=== PATIENT | male | born 2000 | race American Indian/Alaskan Native ===

== ENCOUNTER 2020-07-29 00:27 | Emergency (ER) | payer SELFPAY ==
[~2020-07-29] VITALS: Ht 180.3 cm; Wt 81.8 kg
[2020-07-29 00:39] VITALS: TEMP 98.7
[2020-07-29 01:02] LABS: BASO # 0.1 (0.0-0.2); BASO % 0.5 % (0.0-2.0); EOS # 0.4 (0.0-0.7); EOS % 3.5 % (0-4.0); GRAN # 7.5 (1.4-6.5); GRAN % 66.8 % (42.2-75.2); HEMATOCRIT 51.1 % (42.0-52.0); HEMOGLOBIN 17.1 g/dl (13.5-18.0); LYMPH # 2.6 (1.2-3.4); LYMPH % 22.9 % (20.0-51.0); MEAN CELL VOLUME 86 fl (80.0-100.0); MEAN CORPUSCULAR HEMOGLOBIN 29 pg (27.0-31.0); MEAN CORPUSCULAR HGB CONC 34 g/dl (33.0-37.0); MEAN PLATELET VOLUME 10.4 fl (7.4-10.4); MONO # 0.7 (0.1-0.6); MONO % 5.9 % (1.7-9.3); PLATELET COUNT 289 K/mm3 (130-400); RED BLOOD COUNT 5.96 M/mm3 (4.20-5.60); REDCELL DISTRIBUTION WIDTH-CV 13.5 % (11.5-14.5)
[2020-07-29 01:13] LABS: ALBUMIN 4.8 gm/dL (3.5-5.0); BILIRUBIN,TOTAL 1.1 mg/dL (0.0-1.0); CALCIUM 8.8 mg/dL (8.4-10.2); CREATININE, serum 0.86 (0.66-1.25); POTASSIUM 3.8 mmol/L (3.4-5.0); TOTAL PROTEIN 9.4 gm/dL (6.4-8.2)
[2020-07-29 06:09] VITALS: BP 140/80; PULSE 105
== END 2020-07-29 06:16 | disposition home or self-care (01) ==
LOC: COL.ER 00:27
PROVIDERS: Emergency Medicine
DX: F10.129 Alcohol abuse with intoxication, unspecified (principal); F14.129 Cocaine abuse with intoxication, unspecified; J45.909 Unspecified asthma, uncomplicated; Y90.9 Presence of alcohol in blood, level not specified
CPT/HCPCS: J1630; J2405; J7030

== ENCOUNTER 2020-08-02 03:13 | Emergency (ER) | payer SELFPAY ==
[~2020-08-02] VITALS: Ht 180.3 cm; Wt 75.0 kg
[2020-08-02 03:15] VITALS: TEMP 96.8
[2020-08-02 09:05] LABS: HEMATOCRIT 49.8 % (42.0-52.0); HEMOGLOBIN 16.9 g/dl (13.5-18.0); MEAN CELL VOLUME 86 fl (80.0-100.0); MEAN CORPUSCULAR HEMOGLOBIN 29 pg (27.0-31.0); MEAN CORPUSCULAR HGB CONC 34 g/dl (33.0-37.0); MEAN PLATELET VOLUME 10.1 fl (7.4-10.4); PLATELET COUNT 276 K/mm3 (130-400); RED BLOOD COUNT 5.79 M/mm3 (4.20-5.60); REDCELL DISTRIBUTION WIDTH-CV 14.1 % (11.5-14.5)
[2020-08-02 09:15] VITALS: BP 136/53; PULSE 98
[2020-08-02 09:16] LABS: CALCIUM 9.1 mg/dL (8.4-10.2); CREATININE, serum 0.71 (0.66-1.25); POTASSIUM 3.9 mmol/L (3.4-5.0)
== END 2020-08-02 09:15 | disposition short-term general hospital (02) ==
LOC: COL.ER 03:13
PROVIDERS: Emergency Medicine
DX: F10.129 Alcohol abuse with intoxication, unspecified (principal); F14.10 Cocaine abuse, uncomplicated; J45.909 Unspecified asthma, uncomplicated
CPT/HCPCS: J1953; J2405; J3010; J7050

== ENCOUNTER 2020-09-24 03:48 | Emergency (ER) | payer SELFPAY ==
[~2020-09-24] VITALS: Ht 180.3 cm; Wt 79.5 kg
[2020-09-24 03:50] VITALS: BP 144/125
[2020-09-24 04:01] LABS: COLLECTION METHOD CLEAN CATCH
[2020-09-24 04:06] LABS: PH 6 (5-8); SQUAMOUS EPITHELIAL None Seen /hpf; URINE APPEARANCE Clear; URINE BACTERIA None Seen /hpf; URINE BILIRUBIN Negative (NEGATIVE); URINE BLOOD Negative (NEGATIVE); URINE COLOR Colorless; URINE GLUCOSE Negative (NEGATIVE); URINE KETONE Negative (NEGATIVE); URINE LEUKOCYTE ESTERASE Negative (NEGATIVE); URINE NITRATE Negative (NEGATIVE); URINE PROTEIN(semi-quant) Negative (NEGATIVE); URINE RBC None Seen /hpf; URINE UROBILINOGEN Negative (NEGATIVE)
[2020-09-24 04:07] LABS: BASO # 0.1 (0.0-0.2); BASO % 0.6 % (0.0-2.0); EOS # 0.1 (0.0-0.7); EOS % 1.1 % (0-4.0); GRAN # 5.4 (1.4-6.5); GRAN % 66.3 % (42.2-75.2); HEMOGLOBIN 15.9 g/dl (13.5-18.0); LYMPH # 1.9 (1.2-3.4); LYMPH % 23.4 % (20.0-51.0); MEAN CELL VOLUME 84 fl (80.0-100.0); MEAN CORPUSCULAR HEMOGLOBIN 29 pg (27.0-31.0); MEAN CORPUSCULAR HGB CONC 35 g/dl (33.0-37.0); MEAN PLATELET VOLUME 10.2 fl (7.4-10.4); MONO # 0.7 (0.1-0.6); MONO % 8.4 % (1.7-9.3); PLATELET COUNT 284 K/mm3 (130-400); RED BLOOD COUNT 5.47 M/mm3 (4.20-5.60); REDCELL DISTRIBUTION WIDTH-CV 13.4 % (11.5-14.5)
[2020-09-24 04:15] LABS: TRICYCLIC ANTIDEPRESS URINE NEGATIVE
[2020-09-24 04:18] LABS: ALANINE AMINOTRANSFERASE 15 U/L (4-49); ALBUMIN 4.9 gm/dL (3.5-5.0); ALKALINE PHOSPHATASE 91 U/L (50-136); ANION GAP 12 mmol/L (7-16); AST,SGOT 27 U/L (15-37); BILIRUBIN,TOTAL 1.3 mg/dL (0.0-1.0); BLOOD UREA NITROGEN 7 mg/dL (9-20); CALCIUM 9.1 mg/dL (8.4-10.2); CARBON DIOXIDE 22 mmol/L (22-30); CHLORIDE 107 mmol/L (98-107); CREATININE, serum 0.87 (0.66-1.25); GLUCOSE 108 mg/dL (74-106); POTASSIUM 3.6 mmol/L (3.4-5.0); SODIUM 141 mmol/L (137-145); TOTAL PROTEIN 8.6 gm/dL (6.4-8.2)
[2020-09-24 04:27] LABS: ALCOHOL(ethanol),MEDICAL 258 mg/dL
[2020-09-24 04:28] LABS: ACETAMINOPHEN < 10 ug/mL (10-30); SALICYLATE < 1.0 mg/dL
[2020-09-24 05:08] VITALS: PULSE 112
== END 2020-09-24 05:08 | disposition home or self-care (01) ==
LOC: COL.ER 03:48
PROVIDERS: Emergency Medicine
DX: F10.129 Alcohol abuse with intoxication, unspecified (principal); J45.909 Unspecified asthma, uncomplicated
CPT/HCPCS: J7030

== ENCOUNTER 2020-11-06 09:38 | Observation (INO) | payer SELFPAY ==
[~2020-11-06] VITALS: Ht 180.3 cm; Wt 72.7 kg
[2020-11-06 10:01] LABS: HEMATOCRIT 51.7 % (42.0-52.0); HEMOGLOBIN 17.7 g/dl (13.5-18.0); MEAN CELL VOLUME 89 fl (80.0-100.0); MEAN CORPUSCULAR HEMOGLOBIN 30 pg (27.0-31.0); MEAN CORPUSCULAR HGB CONC 34 g/dl (33.0-37.0); PLATELET COUNT 308 K/mm3 (130-400); RED BLOOD COUNT 5.84 M/mm3 (4.20-5.60); REDCELL DISTRIBUTION WIDTH-CV 13.6 % (11.5-14.5)
[2020-11-06 10:08] LABS: ALBUMIN 4.8 gm/dL (3.5-5.0); BILIRUBIN,TOTAL 0.5 mg/dL (0.0-1.0); CALCIUM 9.3 mg/dL (8.4-10.2); CREATININE, serum 0.79 (0.66-1.25); POTASSIUM 4.2 mmol/L (3.4-5.0); TOTAL PROTEIN 8.8 gm/dL (6.4-8.2)
[2020-11-06 10:13] LABS: SALICYLATE 33.8 mg/dL
[2020-11-06 10:26] LABS: BAND 10 % (0-10); LYMPHOCYTE 6 % (20.0-51.0); NEUTROPHILS 81 % (42.0-75.2); PLATELET ESTIMATE NORMAL (NORMAL)
[2020-11-06 11:02] LABS: ARTERIAL BLD GAS O2 SATURATION 97.7 % (92-100); ARTERIAL BLD GAS TCO2 CT 22.8; ARTERIAL BLOOD GAS BASE EXCESS -1.3 (-2-2); ARTERIAL BLOOD GAS HCO3 21.8 meq/L (22-26); ARTERIAL BLOOD GAS PCO2 33.1 mmHg (35-45); ARTERIAL BLOOD GAS PO2 95.5 mmHg (80-100); ARTERIAL BLOOD GAS pH 7.44 (7.35-7.45)
[2020-11-06] MEDS ORDERED: SINGULAIR 110 MG/TAB PO (12:07)
[2020-11-06 12:16] LABS: INR 1.1 (0.8-3.0); PROTHROMBIN TIME 12.1 SECONDS (9.7-12.8)
[2020-11-06 12:39] LABS: COLLECTION METHOD CLEAN CATCH
[2020-11-06 12:47] LABS: PH 6 (5-8); SQUAMOUS EPITHELIAL None Seen /hpf; URINE APPEARANCE Clear; URINE BACTERIA None Seen /hpf; URINE BILIRUBIN Negative (NEGATIVE); URINE BLOOD Negative (NEGATIVE); URINE COLOR Yellow; URINE GLUCOSE Negative (NEGATIVE); URINE KETONE 1+ (NEGATIVE); URINE LEUKOCYTE ESTERASE Negative (NEGATIVE); URINE NITRATE Negative (NEGATIVE); URINE PROTEIN(semi-quant) 2+ (NEGATIVE); URINE UROBILINOGEN Negative (NEGATIVE)
[2020-11-06 12:52] VITALS: BP 134/73; PULSE 105; TEMP 98.6
[2020-11-06 12:55] LABS: TRICYCLIC ANTIDEPRESS URINE NEGATIVE
[2020-11-06 14:26] LABS: ALBUMIN 4.7 gm/dL (3.5-5.0); BILIRUBIN,TOTAL 0.6 mg/dL (0.0-1.0); CALCIUM 9.7 mg/dL (8.4-10.2); CREATININE, serum 0.71 (0.66-1.25); POTASSIUM 4.3 mmol/L (3.4-5.0); TOTAL PROTEIN 8.9 gm/dL (6.4-8.2)
[2020-11-06 15:24] LABS: ALBUMIN 4.6 gm/dL (3.5-5.0); BILIRUBIN,TOTAL 0.6 mg/dL (0.0-1.0); CALCIUM 9.6 mg/dL (8.4-10.2); CREATININE, serum 0.7 (0.66-1.25); SALICYLATE 28.7 mg/dL; TOTAL PROTEIN 8.6 gm/dL (6.4-8.2)
[2020-11-06 16:38] VITALS: BP 128/70; PULSE 84; TEMP 98
[2020-11-06 16:43] LABS: INR 1.2 (0.8-3.0); PROTHROMBIN TIME 13.4 SECONDS (9.7-12.8)
[2020-11-06 16:46] LABS: ALBUMIN 4.5 gm/dL (3.5-5.0); BILIRUBIN,TOTAL 0.6 mg/dL (0.0-1.0); CALCIUM 9.6 mg/dL (8.4-10.2); CREATININE, serum 0.69 (0.66-1.25); POTASSIUM 4.1 mmol/L (3.4-5.0); SALICYLATE 26.8 mg/dL; TOTAL PROTEIN 8.3 gm/dL (6.4-8.2)
--- NOTE | 2020-11-06 18:18 | NUR ---
Contacted Moni CUETO to clarify orders on patinet.
--- NOTE | 2020-11-06 18:19 | NUR ---
Patient doing well since up from ER. Alert and oriented x 3. Oriented to room. Friend at bedside. Denies pain or further needs at this time. Will report off to mine shifter.
[2020-11-06 19:15] LABS: ALBUMIN 4.7 gm/dL (3.5-5.0); BILIRUBIN,TOTAL 0.7 mg/dL (0.0-1.0); CALCIUM 9.7 mg/dL (8.4-10.2); CREATININE, serum 0.72 (0.66-1.25); POTASSIUM 3.4 mmol/L (3.4-5.0); SALICYLATE 24.7 mg/dL; TOTAL PROTEIN 8.4 gm/dL (6.4-8.2)
[2020-11-06 19:23] VITALS: BP 139/83; PULSE 118; TEMP 97.9
[2020-11-06 20:40] LABS: ALBUMIN 4.6 gm/dL (3.5-5.0); BILIRUBIN,TOTAL 0.7 mg/dL (0.0-1.0); CALCIUM 9.4 mg/dL (8.4-10.2); CREATININE, serum 0.72 (0.66-1.25); POTASSIUM 3.4 mmol/L (3.4-5.0); TOTAL PROTEIN 8.1 gm/dL (6.4-8.2)
[2020-11-06 20:46] LABS: INR 1.2 (0.8-3.0); PROTHROMBIN TIME 13.4 SECONDS (9.7-12.8)
[2020-11-06 20:46] LABS: ARTERIAL BLD GAS O2 SATURATION 97.1 % (92-100); ARTERIAL BLD GAS TCO2 CT 24.8; ARTERIAL BLOOD GAS BASE EXCESS 0.6 (-2-2); ARTERIAL BLOOD GAS HCO3 23.7 meq/L (22-26); ARTERIAL BLOOD GAS PCO2 34.3 mmHg (35-45); ARTERIAL BLOOD GAS PO2 85.9 mmHg (80-100); ARTERIAL BLOOD GAS pH 7.46 (7.35-7.45)
[2020-11-06 20:48] LABS: SALICYLATE 23.2 mg/dL
--- NOTE | 2020-11-06 22:42 | NUR ---
SPOKE WITH POISON CONTROL, UPDATES GIVEN. RELAYED RECOMMENDED LABS TO TYRESE CUETO FOR AM. CONTINUE ACETADOTE.
[2020-11-06 23:15] LABS: ALBUMIN 4.3 gm/dL (3.5-5.0); BILIRUBIN,TOTAL 0.7 mg/dL (0.0-1.0); CALCIUM 9.2 mg/dL (8.4-10.2); CREATININE, serum 0.7 (0.66-1.25); SALICYLATE 20.6 mg/dL; TOTAL PROTEIN 7.7 gm/dL (6.4-8.2)
[2020-11-07 00:01] VITALS: BP 133/67; PULSE 106; TEMP 97.9
--- NOTE | 2020-11-07 00:46 | NUR ---
REPORTS MILD NAUSEA, ZOFRAN 4MG IVP GIVEN AT THIS TIME.
--- NOTE | 2020-11-07 04:00 | NUR ---
PT TAKES ACETADOTE WITH MINIMAL NAUSEA. SALTINES HELPED EASE STOMACH. DENIES NEEDS AT THIS TIME.
[2020-11-07 04:06] VITALS: BP 132/63; PULSE 88; TEMP 98.4
--- NOTE | 2020-11-07 07:00 | NUR ---
Report received from SERGEY Marino. PT in bedresting, denies any pain or nausea at this time but does not want any breakfast this am. Crackers at bedside. Will cotninue to monitor.
[2020-11-07 07:40] VITALS: BP 122/63; PULSE 73; TEMP 98.3
[2020-11-07 07:57] LABS: INR 1.2 (0.8-3.0); PROTHROMBIN TIME 13.4 SECONDS (9.7-12.8)
[2020-11-07 07:59] LABS: ACETAMINOPHEN < 10 ug/mL (10-30); ALANINE AMINOTRANSFERASE 12 U/L (4-49); ALKALINE PHOSPHATASE 61 U/L (50-136); ANION GAP 10 mmol/L (7-16); AST,SGOT 22 U/L (15-37); BILIRUBIN,TOTAL 0.8 mg/dL (0.0-1.0); BLOOD UREA NITROGEN 5 mg/dL (9-20); CALCIUM 9.1 mg/dL (8.4-10.2); CARBON DIOXIDE 26 mmol/L (22-30); CHLORIDE 105 mmol/L (98-107); CREATININE, serum 0.67 (0.66-1.25); GLUCOSE 95 mg/dL (74-106); POTASSIUM 3.4 mmol/L (3.4-5.0); SODIUM 140 mmol/L (137-145); TOTAL PROTEIN 7.3 gm/dL (6.4-8.2)
--- NOTE | 2020-11-07 08:15 | NUR ---
Pt Assessment charted. Pt requesting potassium pills instead of drinks this am. Denies any thoughts or intentions with the overdose and does not have any suicidal ideations. IVF to R A/C. Denies pain or nausea, will continue to monitor.
--- NOTE | 2020-11-07 11:06 | NUR ---
Update provided to poison control nurse Sj.
[2020-11-07] MEDS ORDERED: KEPPRA 500MG500 MG PO (11:09)
[2020-11-07 11:53] VITALS: BP 125/81; PULSE 88; TEMP 98.8
--- NOTE | 2020-11-07 12:01 | NUR ---
Plans to Return Home Independently. Patient reports that he resides locally and independent. Patient shares that his next of kin is Rosalee Petty Sister . Patient reports that he has a PCP at the [facility] in [facility] but does not remember her name. Patient reports that he obtains medications in [place] at [facility]. Patient reports that his [place] doctor is Temi. Patient denies having any DME use or supports. SW-went back in to talk about safety with patient and alcohol use. Patient denies having a problem currently and reffers to having a problem with Alcohol in the past. SW confronted patient with information on patient having several alcohol related incidences in the past 3 months. Patient reports that he is managing his alcohol use and only consumes on the weekend. Patient admits to sometimes forgetting that he has taken his medications and then drinks. Patient reports that the nigth before last was hazy and only had to beers and does not drink hard liquor. SW offered supports for [facility] and rehab. Patient declined. Gave nurse information to put with the DC packet. Will send information to compensation programs manager to follow-up.
--- NOTE | 2020-11-07 12:35 | NUR ---
Discharge teaching completed at this time. INT dc'd, tip intact. PT reviewed discharge packet including recommendations for follow up, abstaining from driving until cleared by neurologuy and abstaining from alcohol use. Discussed options provided by SW for resources available. Denies needs, denies questions. Pt escorted out with all belongings, friend to drive home, criteria met.
== END 2020-11-07 12:30 | disposition home or self-care (01) ==
LOC: COL.ER 09:38 → SURG 11:57 → COL.ER 11:57 → SURG 12:08
PROVIDERS: Emergency Medicine; Student in an Organized Health Care Education/Training Program; ADMIT Internal Medicine
DX: T39.1X5A Adverse effect of 4-Aminophenol derivatives, initial encounter (principal); E87.6 Hypokalemia; J45.909 Unspecified asthma, uncomplicated; G40.909 Epilepsy, unspecified, not intractable, without status epilepticus; F10.10 Alcohol abuse, uncomplicated; F17.290 Nicotine dependence, other tobacco product, uncomplicated; Z79.899 Other long term (current) drug therapy; Z87.820 Personal history of traumatic brain injury; Z83.3 Family history of diabetes mellitus
CPT/HCPCS: G0378; J0132; J2405; J2765; J7030